=== PATIENT | female | born 1930 | race Caucasian/White ===

== ENCOUNTER 2017-09-29 16:52 | Emergency (ER) | payer MEDICARE ==
[~2017-09-29] VITALS: Ht 162.6 cm; Wt 80.0 kg
[2017-09-29 16:59] VITALS: BP 191/74; PULSE 74; RESP 20; TEMP 98.4; O2SAT 97
[2017-09-29] MEDS ORDERED: EYEDROPS (17:07)
[2017-09-29] MEDS ORDERED: PANT20TA2 PO (17:07)
[2017-09-29] MEDS ORDERED: LOSA25TA PO (17:07)
[2017-09-29] MEDS ORDERED: ROSU5 PO (17:07)
[2017-09-29] MEDS ORDERED: TRIA37.53 (17:07)
[2017-09-29] MEDS ORDERED: ASPI-516 CHEW (17:07)
--- NOTE | 2017-09-29 18:09 | PD ---
HPI Chief Complaint: Fall Time Seen by Provider: 17:33 Travel History International Travel<30 days: No Contact w/Intl Traveler<30days: No Traveled to known affect area: No History of Present Illness HPI 87-year-old female with PMH of HTN, HLD presents to the ED after fall. Patient states that she tripped over a 2 inch ledge and landed on concrete. She endorses hitting her head but denies loss of consciousness. On presentation she complains of mild anterior headache. She denies dizziness, vision changes, nausea. Also complains of 6/10 pain of the right knee and skin tears of the right arm. She states her last tetanus shot was "a few years ago.". She has been ambulatory on the leg. She denies numbness, tingling, weakness, limitations range of motion of the knee. She takes a baby aspirin daily. PFSH Past Medical History High Cholesterol: Yes Glaucoma: Yes Hypertension: Yes Tetanus Vaccination: < 5 Years Influenza Vaccination: Yes ?: Not Past Surgical History Eye Surgery: Yes (CATARACTS) Tonsillectomy: Yes Social History Alcohol Use: No Tobacco Use: No Substance Use: No Allergies-Medications (Allergen,Severity, Reaction): Coded Allergies: No Known Allergies (Unverified , 09/29/17) Reported Meds & Prescriptions Reported Meds & Active Scripts Active Reported [Eyedrops ] Triamterene-Hydrochlorothiazide 37.5-25 Mg Cap 1 Cap DAILY Pantoprazole (Pantoprazole Sodium) 20 Mg Tab 20 Mg PO DAILY Crestor (Rosuvastatin Calcium) 5 Mg Tab 5 Mg PO DAILY Losartan (Losartan Potassium) 25 Mg Tab 12.5 Mg PO DAILY Aspirin 81 Mg Chew 81 Mg CHEW DAILY Review of Systems Except as stated in HPI: all other systems reviewed are Neg Physical Exam Narrative GENERAL: Well-nourished, well-developed white female in no acute distress. Sitting up on the stretcher in no acute distress. SKIN: Warm and dry. 2 large skin tears of the right forearm. Small abrasion on the bridge of the nose. HEAD: Normocephalic. Atraumatic. No raccoon eyes or patel sign. No tenderness to palpation of the skull. No bony step-offs. No malocclusion of the teeth. EYES: No scleral icterus. No injection or drainage. PERRLA. EOMI. ENT: Nasal mucosa is moist. Oropharynx without erythema, edema or exudate. NECK: Supple, trachea midline. No JVD or lymphadenopathy. No midline tenderness to palpation. Patient retains full, active, painless range of motion of the neck. CARDIOVASCULAR: Regular rate and rhythm without murmurs, gallops, or rubs. 2+ DP and radial pulses bilaterally. RESPIRATORY: Breath sounds clear and equal bilaterally. No accessory muscle use. GASTROINTESTINAL: Abdomen soft, non-tender, nondistended. + Bowel sounds MUSCULOSKELETAL: No cyanosis, or edema. Large, tender hematoma noted on the anterior lateral right knee. No other tenderness to palpation or limitations to range of motion of the joints of the upper and lower extremities bilaterally. No pain elicited with hip rocking. NEUROLOGICAL: Awake and alert. Cranial nerves II through XII intact. Motor and sensory grossly within normal limits. 5/5 muscle strength in all muscle groups. Normal speech. BACK: Nontender without obvious deformity. No CVA tenderness. No midline tenderness. Data Data Last Documented VS Vital Signs Date Time Temp Pulse Resp B/P (MAP) Pulse Ox O2 Delivery O2 Flow Rate FiO2 09/29/17 16:59 98.4 74 20 191/74 (113) 97 Orders Orders Acetaminophen (Tylenol) (09/29/17 18:15) Ct Brain W/O Iv Contrast(Rout) (09/29/17 ) Knee, Complete (4vws) (09/29/17 18:02) Ice/Cold Pack (09/29/17 18:02) Wound Care (09/29/17 18:02) Ed Discharge Order (09/29/17 19:19) [facility] Medical Decision Making Medical Screen Exam Complete: Yes Emergency Medical Condition: Yes Differential Diagnosis fall versus abrasion versus contusion versus skin tear versus need for tetanus immunization versus other Narrative Course 87-year-old female with PMH of HTN, HLD presents to the ED after mechanical fall from standing, landed on concrete. She endorses hitting her head, no LOC. On presentation she complains of mild anterior headache and 6/10 pain of the right knee and skin tears of the right arm. She states her last tetanus shot was "a few years ago." She takes a baby aspirin daily. Vitals reviewed. On exam the patient has small abrasion on the bridge of the nose, several large skin tears of the right upper extremity, contusion with hematoma of the right knee. Exam otherwise reassuring. CT of the brain normal per radiology read. X -ray right knee reveals moderate osteoarthritis and small joint effusion. Patient was administered 650 mg Tylenol. On recheck she reports improvement of her headache symptoms. Wound care and Steri-Strips were applied by the nurse. Patient was provided with an Derek wrap, instructed to return to normal, gentle activity as tolerated, monitor for signs of infection, follow with the primary care provider. She indicated understanding the instructions and is agreeable to care plan. The patient is stable and discharged home. Diagnosis Primary Impression: Fall from standing Qualified Codes: W19.XXXA - Unspecified fall, initial encounter Additional Impressions: Contusion of right knee Qualified Codes: S80.01XA - Contusion of right knee, initial encounter Skin tear of right forearm without complication Qualified Codes: S51.811A - Laceration without foreign body of right forearm, initial encounter Abrasion of nose, initial encounter Referrals: Primary Care Physician Additional Instructions: Rest, hydrate. Return to normal, gentle activity as tolerated. Rest, ice, elevate the right lower extremity. Apply ice no longer than 10-15 minutes per hour a few times a day. Narp-aic-[id number] pain medications as described on the label as needed for pain. Return to normal, gentle activity as tolerated. No running, jumping activities for the next few weeks. Follow up with orthopedist. Keep your wound clean, dry and covered. Change the dressing anytime he becomes soiled or wet. Do not submerge the Steri-Strips. Do not pull the Steri-Strips off, they are both the sutures and the dressing and will fall off on their own. Monitor for signs of infection as discussed. Follow with the primary care provider upon return home. Return to the ED for any urgent or emergent medical condition. Disposition: 01 DISCHARGE HOME Condition: Stable Maranda Romero Sep 29, 2017 18:09
[2017-09-29] MEDS ORDERED: ACETAMINOPHEN 325 MG TAB PO ONE (18:15)
--- NOTE | 2017-09-29 18:42 | RADRPT ---
EXAM DATE/TIME: 09/29/2017 18:24 [facility] COMPARISON: No previous studies available for comparison. INDICATIONS : Fall today. RADIATION DOSE: 52.13 CTDIvol (mGy) MEDICAL HISTORY : Hypertension. Glaucoma SURGICAL HISTORY : Cataract surgery. ENCOUNTER: Initial ACUITY: 1 day PAIN SCALE: 5/10 LOCATION: cranial TECHNIQUE: Multiple contiguous axial images were obtained of the head. Using automated exposure control and adj ustment of the mA and/or kV according to patient size, radiation dose was kept as low as reasonably a chievable to obtain optimal diagnostic quality images. DICOM format image data is available electro nically for review and comparison. FINDINGS: CEREBRUM: The ventricles are normal for age. No evidence of midline shift, mass lesion, hemorrhage or acute in farction. No extra-axial fluid collections are seen. POSTERIOR FOSSA: The cerebellum and brainstem are intact. The 4th ventricle is midline. The cerebellopontine angle i s unremarkable. EXTRACRANIAL: The visualized portion of the orbits is intact. SKULL: The calvaria is intact. No evidence of skull fracture. CONCLUSION: Normal examination for a patient of this age. Gregory Barkley MD on September 29, 2017 at 18:39 Board Certified Radiologist. This report was verified electronically.
--- NOTE | 2017-09-29 18:52 | RADRPT ---
EXAM DATE/TIME: 09/29/2017 18:18 [facility] COMPARISON: No previous studies available for comparison. INDICATIONS : Right knee pain due to fall. MEDICAL HISTORY : None. SURGICAL HISTORY : None. ENCOUNTER: Initial ACUITY: 1 day PAIN SCORE: 6/10 LOCATION: Right Knee. FINDINGS: Four view examination of the right knee demonstrates moderate osteoarthritis. Small joint effusion. N o acute fracture or dislocation. CONCLUSION: 1. Moderate osteoarthritis and small joint effusion. Soft tissue swelling over the anterior knee. Gregory Barkley MD on September 29, 2017 at 18:48 Board Certified Radiologist. This report was verified electronically.
== END 2017-09-29 19:46 | disposition home or self-care (01) ==
LOC: NEDAMB 16:52
DX: S80.01XA Contusion of right knee, initial encounter (principal); R51 Headache; S51.811A Laceration without foreign body of right forearm, initial encounter; S00.31XA Abrasion of nose, initial encounter; I10 Essential (primary) hypertension; W18.09XA Striking against other object with subsequent fall, initial encounter; Y93.01 Activity, walking, marching and hiking
CPT/HCPCS: 70450; 73564